=== PATIENT | female | born 1995 | race Caucasian/White ===

== ENCOUNTER 2018-07-28 11:15 | Day surgery (SDC) | payer OTHER ==
[2018-07-25 16:19] VITALS: BMI 25.6
[2018-07-28 12:11] VITALS: TEMP 98.3
[2018-07-28] MEDS ORDERED: MIDAZOLAM HCL 2 MG/2 ML SINGLE DOSE VIAL ONE ×3 (13:32→13:35)
--- NOTE | 2018-07-28 14:11 | OP ---
Operative Note - Note: Operative Date: 07/28/18 Pre-Operative Diagnosis: Right renal stone Operation: Right ESWL Findings: 4 mm lower pole Right renal stone Post-Operative Diagnosis: Same as Pre-op Surgeon: Renzo Garibay Anesthesia: Local, Fractional Estimated Blood Loss (mls): 0 Operative Report Dictated: Yes
[2018-07-28 15:52] VITALS: BP 101/51; PULSE 70
--- NOTE | 2018-07-28 21:28 | OP ---
DATE OF OPERATION: 07/28/2018 PREOPERATIVE DIAGNOSIS: Right renal stone. POSTOPERATIVE DIAGNOSIS: Right renal stone. PROCEDURE: Right extracorporeal shock wave lithotripsy. ATTENDING: Curtis Ch MD ANESTHESIA: Fractional. DESCRIPTION OF OPERATION: Patient was brought in the operating room, placed in supine position on the operating room table. Ultrasonography and fluoroscopy were performed. A 4-mm right lower pole stone was identified. At this point, anesthesia and preoperative antibiotics were administered. Shock wave lithotripsy was then started; 2500 impulses at 17 joules of power were administered to the stone with excellent fragmentation of the stone under real-time ultrasonography and fluoroscopy. No complications were noted. Patient tolerated the procedure very well. The disposition of the patient was to the recovery room. CURTIS CH M.D. /[id number]
== END 2018-07-28 15:50 | disposition home or self-care (01) ==
LOC: JASU-SURG 11:15
PROVIDERS: ATTEND Urology
PROC: 0TF3XZZ Fragmentation in Right Kidney Pelvis, External Approach (ICD-10-PCS; principal; 2018-07-28 14:45)
DX: N20.0 Calculus of kidney (principal)
CPT/HCPCS: 84703

== ENCOUNTER 2018-08-25 07:58 | Day surgery (SDC) | payer OTHER ==
[2018-08-21 15:33] VITALS: BMI 25.6
[2018-08-25] MEDS ORDERED: MIDAZOLAM HCL 2 MG/2 ML SINGLE DOSE VIAL ONE ×2 (09:03)
[2018-08-25] MEDS ORDERED: KETOROLAC TROMETHAMINE 30 MG/1 ML VIAL ONE (09:30)
[2018-08-25] MEDS ORDERED: DEXAMETHASONE SOD PHOSPHATE 4 MG/1 ML VIAL ONE (09:30)
--- NOTE | 2018-08-25 09:46 | OP ---
Operative Note - Note: Operative Date: 08/25/18 Pre-Operative Diagnosis: Left renal stone Operation: Left ESWL Findings: 7 mm Left lower pole stone Post-Operative Diagnosis: Same as Pre-op Surgeon: Renzo Garibay Anesthesia: Fractional Estimated Blood Loss (mls): 0 Operative Report Dictated: Yes
[2018-08-25 09:54] VITALS: PULSE 90; TEMP 97.9
[2018-08-25 11:58] VITALS: BP 108/68
--- NOTE | 2018-08-26 11:26 | OP ---
DATE OF OPERATION: 08/25/2018 PREOPERATIVE DIAGNOSIS: Left renal stone. POSTOPERATIVE DIAGNOSIS: Left renal stone. PROCEDURE: Left extracorporeal shock-wave lithotripsy. ATTENDING: Curtis Ch MD ANESTHESIA: Fractional. DESCRIPTION OF PROCEDURE: The patient was brought in the operating room and placed in a supine position on the operating room table. Ultrasonography and fluoroscopy were performed. A 7-mm left lower pole stone was identified. Anesthesia and preoperative antibiotics were then administered. Shock-wave lithotripsy was then performed; 2500 impulses at 17 J of power were administered to the stone. Excellent fragmentation of the stone was noted under real-time ultrasonography and fluoroscopy. No complications were noted. DISPOSITION: Patient went to recovery room. CURTIS CH M.D. SE/[id number]
== END 2018-08-25 12:02 | disposition home or self-care (01) ==
LOC: JASU-SURG 07:58
PROVIDERS: ATTEND Urology
PROC: 0TF4XZZ Fragmentation in Left Kidney Pelvis, External Approach (ICD-10-PCS; principal; 2018-08-25 14:45)
DX: N20.0 Calculus of kidney (principal)
CPT/HCPCS: 84703